=== PATIENT | female | born 1940 | race Hispanic/Latino ===

== ENCOUNTER 2018-02-22 17:15 | Emergency (ER) | payer MEDICARE ==
[2018-02-22 17:29] VITALS: BMI 21.2
[2018-02-22 17:33] VITALS: RESP 18; TEMP 99.4
--- NOTE | 2018-02-22 17:36 | ED PDOC ---
Arrival/HPI - General Chief Complaint: GI Problem Time Seen by Provider: 02/22/18 17:22 Historian: Patient - History of Present Illness Narrative History of Present Illness (Text): 02/22/18 17:30 Jackelin Rausch is a 77 year old female who presents to the emergency department complaining of 3 weeks duration of nausea, diarrhea, generalized weakness, fatigue, lightheadedness with frequent falls. No trauma. Patient spoke with Dr. Cantor today, who sent her to the emergency department via ambulance. No other complaints at this time. Patient endorses that she has never smoked and does not drink. PMD: Dr. Cantor Neurologist: Dr. Cole Time/Duration: < month Symptom Onset: Gradual Symptom Course: Unchanged Activities at Onset: Rest Context: Home Associated Symptoms (Text): 02/22/18 17:55 3 week history of generalized weakness and fatigue along with dizziness frequent falls and diarrhea. There is some nausea but no vomiting. She denies any injury. Spoke with her PMD who directed her to the emergency department. No fever. No travel or exposure. No chest pain palpitations or dyspnea. Past Medical History - Provider Review Nursing Documentation Reviewed: Yes - Reproductive Menopause: No - Cardiac Hx Cardiac Disorders: Yes Hx Hypertension: Yes - Pulmonary Hx Respiratory Disorders: No Other/Comment: smoker - Neurological Hx Neurological Disorder: Yes Hx Migraine: Yes - HEENT Hx HEENT Disorder: No - Renal Hx Renal Disorder: No - Endocrine/Metabolic Hx Endocrine Disorders: No Other/Comment: VITAMIN D DEFICIENCY,TOXIC GOITER - Hematological/Oncological Hx Blood Transfusions: No Hx Blood Transfusion Reaction: No - Integumentary Hx Dermatological Disorder: Yes (SKIN ABRASION TO FACE FROM FALL) - Musculoskeletal/Rheumatological Hx Musculoskeletal Disorders: Yes Hx Falls: Yes (12/11/14,10-05-15,) Hx Fractures: Yes (RIGHT AND LEFT HUMERAL FX. 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 - Gastrointestinal Hx Gastrointestinal Disorders: No - Genitourinary/Gynecological Hx Genitourinary Disorders: No - Psychiatric Hx Psychophysiologic Disorder: Yes Hx Depression: Yes Hx Emotional Abuse: No Hx Physical Abuse: No Hx Substance Use: No - Past Surgical History Past Surgical History: No Previous - Surgical History Hx Orthopedic Surgery: Yes (orif left shoulder 12/13/2014) - Anesthesia Hx Anesthesia: Yes Hx Anesthesia Reactions: No Hx Malignant Hyperthermia: No - Suicidal Assessment Feels Threatened In Home Enviroment: No Family/Social History - Physician Review Nursing Documentation Reviewed: Yes Family/Social History: No Known Family HX Smoking Status: Former Smoker Hx Alcohol Use: No Hx Substance Use: No Hx Substance Use Treatment: No Allergies/Home Meds Allergies/Adverse Reactions: Allergies No Known Allergies Allergy (Verified 10/05/15 22:45) Home Medications: Home Meds Medication Instructions Recorded Confirmed Almotriptan Malate [Axert] 12.5 mg pe PO DAILY 02/22/18 02/22/18 Atenolol [Tenormin] 25 mg pe PO DAILY 02/22/18 02/22/18 Calcium Carbonate [Calcium] 500 mg pe PO DAILY 02/22/18 02/22/18 Divalproex [Depakote DR] 500 mg pe PO DAILY 02/22/18 02/22/18 Docusate [Colace] 100 mg pe PO DAILY 02/22/18 02/22/18 Ipratropium 0.02% [Atrovent] 0.02 mg pe NS BID 02/22/18 02/22/18 Oxycodone HCl/Acetaminophen 5 mg pe PO DAILY 02/22/18 02/22/18 [Endocet 5-325 Tablet] clonazePAM [Klonopin] 1 mg pe PO DAILY 02/22/18 02/22/18 Review of Systems - Review of Systems Constitutional: Fatigue, Other (Generalized weakness; Lightheadedness). absent : Fevers, Night Sweats Eyes: absent: Vision Changes ENT: absent: Hearing Changes Respiratory: absent: SOB, Cough, Wheezing Cardiovascular: absent: Chest Pain, Palpitations, Syncope Gastrointestinal: Diarrhea, Nausea. absent: Abdominal Pain, Vomiting Genitourinary Female: absent: Dysuria Musculoskeletal: absent: Arthralgias Skin: absent: Rash, Pruritis Neurological: Dizziness, Gait Changes. absent: Headache, Focal Weakness Endocrine: absent: Diaphoresis Hemo/Lymphatic: absent: Adenopathy Psychiatric: absent: Anxiety, Depression Physical Exam Vital Signs Reviewed: Yes Vital Signs Temp Pulse Resp BP Pulse Ox 02/22/18 17:16 99.4 F 63 18 145/89 97 Temperature: Afebrile Blood Pressure: Normal Pulse: Regular Respiratory Rate: Normal Appearance: Positive for: Uncomfortable, Other (Frail and pale, chronically ill- appearing.) Pain Distress: None Mental Status: Positive for: Alert and Oriented X 3 - Systems Exam Head: Present: Atraumatic, Normocephalic Pupils: Present: PERRL Extroacular Muscles: Present: EOMI Conjunctiva: Present: Normal Ears: Present: NORMAL TM. No: Erythema, Normal Canal Mouth: Present: Moist Mucous Membranes Pharnyx: No: ERYTHEMA, EXUDATE, TONSILS ENLARGED Neck: Present: Normal Range of Motion Respiratory/Chest: Present: Decreased Breath Sounds (Lung sounds diminished). No: Respiratory Distress, Accessory Muscle Use, Wheezes, Rales, Retracting, Rhonchi, Tachypneic, Tender to Palpation Cardiovascular: Present: Regular Rate and Rhythm, Normal S1, S2. No: Murmurs Abdomen: No: Tenderness, Distention, Peritoneal Signs, Rebound, Guarding Back: Present: Normal Inspection Upper Extremity: Present: Normal Inspection. No: Cyanosis, Edema Lower Extremity: Present: Normal Inspection. No: Edema Neurological: Present: GCS=15, CN II-XII Intact, Speech Normal, Motor Func Grossly Intact, Normal Sensory Function, Normal Cerebellar Funct Skin: Present: Pale. No: Rashes Psychiatric: Present: Alert, Oriented x 3, Normal Insight, Normal Concentration Medical Decision Making ED Course and Treatment: 02/22/18 17:37 Impression: 77 year old female complaining of 3 weeks duration of nausea, diarrhea, generalized weakness, fatigue, lightheadedness with frequent falls. Plan: -- EKG -- Head CT w/o contrast -- Chest X-ray -- Urinalysis -- Labs -- Reassess and disposition Progress Notes: 02/22/18 17:56 EKG shows normal sinus rhythm rate approximately [address] or T-wave changes 02/22/18 18:37 Chest X-ray: Creator : Sam Alexis MD IMPRESSION: No active disease. No significant interval change compared to the prior examination(s). 02/22/18 20:02 Patient feels better and wants to go home. Her workup is negative other than very mild dehydration. She was instructed to follow-up with her PMD and neurologist. Follow up in the ER as needed. - Lab Interpretations Lab Results: 02/22/18 18:30 02/22/18 18:30 Lab Results 02/22/18 18:30: Sodium 140, Potassium 4.0, Chloride 105, Carbon Dioxide 26, Anion Gap 13, BUN 27 H, Creatinine 0.9, Est GFR ( Amer) > 60, Est GFR ( Non-Af Amer) > 60, Random Glucose 93, Calcium 11.4 H, Magnesium 1.7, Total Bilirubin 0.2, AST 19, ALT 15, Alkaline Phosphatase 56, Lactate Dehydrogenase 519, Total Creatine Kinase 54, Troponin I < 0.01, Total Protein 6.5, Albumin 3.7 , Globulin 2.8, Albumin/Globulin Ratio 1.3 02/22/18 18:30: PT 10.9, INR 0.96, APTT 26.2 02/22/18 18:30: WBC 8.0, RBC 3.82, Hgb 12.9, Hct 37.6, MCV 98.4, MCH 33.8, MCHC 34.3, RDW 13.3, Plt Count 100 L, MPV 14.1 H, Gran % 65.9, Lymph % (Auto) 28.8, Motley % (Auto) 4.1, Eos % (Auto) 0.9 L, Baso % (Auto) 0.3, Gran # 5.26, Lymph # ( Auto) 2.3, Motley # (Auto) 0.3, Eos # (Auto) 0.1, Baso # (Auto) 0.02 I have reviewed the lab results: Yes - RAD Interpretation Radiology Orders: 02/22/18 17:29 HEAD W/O CONTRAST [CT] Stat CHEST PORTABLE [RAD] Stat Chest 1 view shows no infiltrate effusion or cardiomegaly. CT scan of the head as read by the v rad radiologist shows no acute findings. Reservations Manager: Radiologist - Scribe Statement The provider has reviewed the documentation as recorded by the Daryl Breen Provider Scribe Attestation: All medical record entries made by the Scribe were at my direction and personally dictated by me. I have reviewed the chart and agree that the record accurately reflects my personal performance of the history, physical exam, medical decision making, and the department course for this patient. I have also personally directed, reviewed, and agree with the discharge instructions and disposition. Disposition/Present on Arrival - Present on Arrival Any Indicators Present on Arrival: No History of DVT/PE: No History of Uncontrolled Diabetes: No Urinary Catheter: No History of Decub. Ulcer: No History Surgical Site Infection Following: None - Disposition Have Diagnosis and Disposition been Completed?: Yes Diagnosis: Weakness, Dehydration, Diarrhea Disposition: HOME/ ROUTINE Disposition Time: 20:03 Patient Plan: Discharge Condition: GOOD Discharge Instructions (ExitCare): Weakness (ED), Diarrhea in Adolescents and Adults, Dehydration, Adult (DC), Fatigue (DC) Referrals: Chuy Cantor MD [Primary Care Provider] - Follow up with primary Forms: [employer] (Mongolian)
--- NOTE | 2018-02-22 18:08 | RAD ---
HISTORY: Weakness COMPARISON: 10/05/2015 FINDINGS: LUNGS: No active pulmonary disease. PLEURA: No significant pleural effusion identified, no pneumothorax apparent. CARDIOVASCULAR: No radiographic findings to suggest acute or significant cardiovascular disease. OSSEOUS STRUCTURES: No significant abnormalities. Postoperative findings bilateral shoulders. VISUALIZED UPPER ABDOMEN: Normal. OTHER FINDINGS: None. IMPRESSION: No active disease. No significant interval change compared to the prior examination(s).
[2018-02-22 18:39] LABS: BASO # 0.02 K/mm3 (0.0-2.0); BASO % 0.3 % (0.0-3.0); EOS # 0.1 (0.0-0.7); EOS % 0.9 % (1.5-5.0); GRAN # 5.26 (1.4-6.5); GRAN % 65.9 % (50.0-68.0); HEMOGLOBIN 12.9 g/dL (12.0-16.0); LYMPH # 2.3 (1.2-3.4); LYMPH % 28.8 % (22.0-35.0); MEAN CELL VOLUME 98.4 fl (80.0-105.0); MEAN CORPUSCULAR HEMOGLOBIN 33.8 pg (25.0-35.0); MEAN CORPUSCULAR HGB CONC 34.3 g/dl (31.0-37.0); MEAN PLATELET VOLUME 14.1 fl (7.0-11.0); MONO # 0.3 (0.1-0.6); MONO % 4.1 % (1.0-6.0); RBC 3.82 10^6/uL (3.5-6.1); RED CELL DISTRIBUTION WIDTH 13.3 % (11.5-14.5)
[2018-02-22 18:47] LABS: INR 0.96 (0.93-1.08); PARTIAL THROMBOPLASTIN TIME 26.2 Seconds (25.1-36.5); PROTHROMBIN TIME 10.9 SECONDS (9.4-12.5)
[2018-02-22 18:49] LABS: ALB/GLOB RATIO 1.3 (1.1-1.8); ALBUMIN 3.7 g/dL (3.0-4.8); ALT/SGPT 15 U/L (7-56); AST/SGOT 19 U/L (14-36); BLOOD UREA NITROGEN 27 mg/dL (7-21); CALCIUM 11.4 mg/dL (8.4-10.5); GFR AFRICAN-AMERICAN > 60; GFR NON-AFRICAN AMERICAN > 60
[2018-02-22 18:59] LABS: TROPONIN I < 0.01 ng/mL
--- NOTE | 2018-02-22 19:16 | CARD ---
APPROVED REPORT EKG Measurement Heart [id number] <Conclusion> Normal sinus rhythm Normal ECG
[2018-02-22 20:11] VITALS: BP 154/68; PULSE 60; O2SAT 99
--- NOTE | 2018-02-23 08:14 | CT ---
PROCEDURE: CT HEAD WITHOUT CONTRAST. HISTORY: weak COMPARISON: 10/05/2015 TECHNIQUE: Axial computed tomography images were obtained through the head/brain without intravenous contrast. Radiation dose: Total exam DLP = 1053 mGy-cm. This CT exam was performed using one or more of the following dose reduction techniques: Automated exposure control, adjustment of the mA and/or kV according to patient size, and/or use of iterative reconstruction technique. FINDINGS: HEMORRHAGE: No intracranial hemorrhage. BRAIN: No mass effect or edema. No atrophy or chronic microvascular ischemic changes. VENTRICLES: Unremarkable. No hydrocephalus. CALVARIUM: Unremarkable. PARANASAL SINUSES: Unremarkable as visualized. No significant inflammatory changes. MASTOID AIR CELLS: Unremarkable as visualized. No inflammatory changes. OTHER FINDINGS: The report concurs with the preliminary [facility] report IMPRESSION: No acute findings
== END 2018-02-22 21:34 | disposition home or self-care (01) ==
LOC: ED 17:15
DX: E86.0 Dehydration (principal); R19.7 Diarrhea, unspecified; R53.1 Weakness; I10 Essential (primary) hypertension; Z87.891 Personal history of nicotine dependence

== ENCOUNTER 2018-10-11 15:02 | Inpatient (IN) | payer MEDICARE ==
--- NOTE | 2018-10-11 15:51 | RAD ---
Date of service: 10/11/2018 HISTORY: altered COMPARISON: 02/22/2018 FINDINGS: LUNGS: No active pulmonary disease. PLEURA: No significant pleural effusion identified, no pneumothorax apparent. CARDIOVASCULAR: No aortic atherosclerotic calcification present. Normal cardiac size. No pulmonary vascular congestion. OSSEOUS STRUCTURES: No significant abnormalities. VISUALIZED UPPER ABDOMEN: Normal. OTHER FINDINGS: None. IMPRESSION: No active disease.
--- NOTE | 2018-10-11 15:58 | ED PDOC ---
Arrival/HPI - General Time Seen by Provider: 10/11/18 15:10 Historian: Patient, Family - History of Present Illness Narrative History of Present Illness (Text): 10/11/18 15:28 78 year old female, with past medical history of HTN, migraine HARLEY, and spinal s tenosis, presents tot he Emergency department accompanied by son complaining of difficulty ambulating since today. Son reports patient at baseline ambulates with a walker and dunn at home without any difficulty. As per son, patient is more disoriented than usual, expressing shuffling gait and unsteadiness on her feet. Patient denies any somatic complaints. Patient denies any focal weakness, headache, numbness/tingling, dizziness, urinary symptoms or any other complaints. Patient admits to recent falls but denies any head injuries or loss of consciousness. PMD: Dr. Sakshi Muñoz: Dr. Franco Time/Duration: 4-6 hours Symptom Onset: Gradual Symptom Course: Unchanged Activities at Onset: Light Context: Home Past Medical History - Provider Review Nursing Documentation Reviewed: Yes - Cardiac Hx Cardiac Disorders: Yes Hx Hypertension: Yes - Pulmonary Hx Respiratory Disorders: No Other/Comment: smoker - Neurological Hx Neurological Disorder: Yes Hx Migraine: Yes - HEENT Hx HEENT Disorder: No - Renal Hx Renal Disorder: No - Endocrine/Metabolic Hx Endocrine Disorders: No Other/Comment: VITAMIN D DEFICIENCY,TOXIC GOITER - Hematological/Oncological Hx Blood Transfusions: No Hx Blood Transfusion Reaction: No - Integumentary Hx Dermatological Disorder: Yes (SKIN ABRASION TO FACE FROM FALL) - Musculoskeletal/Rheumatological Hx Musculoskeletal Disorders: Yes Hx Falls: Yes (12/11/14,10-05-15,) Hx Fractures: Yes (RIGHT AND LEFT HUMERAL FX. 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 - Gastrointestinal Hx Gastrointestinal Disorders: No - Genitourinary/Gynecological Hx Genitourinary Disorders: No - Psychiatric Hx Psychophysiologic Disorder: Yes Hx Depression: Yes Hx Emotional Abuse: No Hx Physical Abuse: No Hx Substance Use: No - Past Surgical History Past Surgical History: No Previous - Surgical History Hx Orthopedic Surgery: Yes (orif left shoulder 12/13/2014) - Anesthesia Hx Anesthesia: Yes Hx Anesthesia Reactions: No Hx Malignant Hyperthermia: No - Suicidal Assessment Feels Threatened In Home Enviroment: No Family/Social History - Physician Review Nursing Documentation Reviewed: Yes Family/Social History: Unknown Family HX Smoking Status: Former Smoker Hx Alcohol Use: No Hx Substance Use: No Hx Substance Use Treatment: No Allergies/Home Meds Allergies/Adverse Reactions: Allergies No Known Allergies Allergy (Verified 10/05/15 22:45) Home Medications: Home Meds Medication Instructions Recorded Confirmed Almotriptan Malate [Axert] 12.5 mg pe PO DAILY 02/22/18 02/22/18 Calcium Carbonate [Calcium] 500 mg pe PO DAILY 02/22/18 02/22/18 Divalproex [Depakote DR] 500 mg pe PO DAILY 02/22/18 02/22/18 Docusate [Colace] 100 mg pe PO DAILY 02/22/18 02/22/18 Oxycodone HCl/Acetaminophen 5 mg pe PO DAILY 02/22/18 02/22/18 [Endocet 5-325 Tablet] RX: Atenolol [Tenormin] 25 mg pe PO DAILY 02/22/18 02/22/18 RX: Ipratropium 0.02% [Atrovent] 0.02 mg pe NS BID 02/22/18 02/22/18 clonazePAM [Klonopin] 1 mg pe PO DAILY 02/22/18 02/22/18 Review of Systems - Review of Systems Constitutional: absent: Fevers Respiratory: absent: SOB, Cough Cardiovascular: absent: Chest Pain, OWENS Gastrointestinal: absent: Abdominal Pain, Diarrhea, Nausea, Vomiting Genitourinary Female: absent: Dysuria, Urine Output Changes Musculoskeletal: absent: Back Pain, Neck Pain Skin: absent: Rash Neurological: Gait Changes (unsteady on feet). absent: Headache, Dizziness, Focal Weakness Endocrine: absent: Diaphoresis Psychiatric: absent: Anxiety Physical Exam Vital Signs Reviewed: Yes Vital Signs Temp Pulse Resp BP Pulse Ox 10/11/18 15:34 98.0 F 108 H 18 111/90 98 Temperature: Afebrile Blood Pressure: Normal Pulse: Tachycardic Respiratory Rate: Normal Appearance: Positive for: Well-Appearing, Non-Toxic, Comfortable Pain Distress: None Mental Status: Positive for: other (Alert and orineted x2 ) - Systems Exam Head: Present: Atraumatic, Normocephalic, Other (swelling to left side of her face) Pupils: Present: PERRL Extroacular Muscles: Present: EOMI Conjunctiva: Present: Normal Mouth: Present: Moist Mucous Membranes Neck: Present: Normal Range of Motion Respiratory/Chest: Present: Clear to Auscultation, Good Air Exchange. No: Respiratory Distress, Accessory Muscle Use Cardiovascular: Present: Regular Rate and Rhythm, Normal S1, S2. No: Murmurs Abdomen: No: Tenderness, Distention, Peritoneal Signs Back: Present: Normal Inspection Upper Extremity: Present: Normal Inspection, Normal ROM, Neurovascularly Intact, Other (full strength and normal range of motion bilaterally). No: Cyanosis, Edema Lower Extremity: Present: Normal Inspection, Normal ROM, Neurovascularly Intact, Other (full strength and normal range of motion bilaterally when lying in bed. No bony hip tenderness. Unsteady when attempting to ambulate. ). No: Edema Neurological: Present: GCS=15, CN II-XII Intact, Speech Normal, Other (no midline back tenderness) Skin: Present: Warm, Dry, Normal Color. No: Rashes Psychiatric: Present: Alert (Alert and Orientedx 2), Normal Insight, Normal Concentration Medical Decision Making ED Course and Treatment: 10/11/18 15:28 Impression: 78 year old female presents to the Emergency department or evaluation of increased disorientation and unsteadiness on feet. Plan: -- CT of Head -- EKG -- Labs -- CXR -- Reassess and disposition Prior Visits: Notes and results from previous visits were reviewed. Progress Notes: 10/11/18 16:36 EKG shows sinus tachycardia at 102bpm with normal intervals and no st changes. 10/11/18 17:06 Chest X-ray reviewed by radiologist, shows no active disease. 10/11/18 18:22 CT of head reviewed by radiologist, shows: Limited motion degraded study. Chronic white matter ischemic changes. Few tiny focal areas of low attenuation both basal ganglia may represent chronic lacunar-type infarct versus dilated perivascular spaces. Moderate central volume loss. Orozco made foci of the CT of Maxillofacial reviewed by radiologist, shows: No evidence of acute maxillofacial skeletal fractures. Mild left premaxillary infraorbital soft tissue swelling. Bony orbits intact. Findings also suggest mild exophthalmos. Clinical correlation recommended with ophthalmologic examination. Small focus of polypoid like mucosal thickening floor right maxillary antrum. Minimal mucosal thickening left maxillary antrum. 10/11/18 18:29 Upon reassessment, patient can stand up but is unable to ambulate even with assistance (baseline uses walker). Patient lives alone and cannot be safely discharged. Will need PT/OT and further neuro evaluation. - RAD Interpretation Radiology Orders: 10/11/18 15:28 HEAD W/O CONTRAST [CT] Stat CHEST PORTABLE [RAD] Stat Vice President Of Brand Management: Radiologist - Scribe Statement The provider has reviewed the documentation as recorded by the Scribe Dany Arana. All medical record entries made by the Scribe were at my direction and personally dictated by me. I have reviewed the chart and agree that the record accurately reflects my personal performance of the history, physical exam, medical decision making, and the department course for this patient. I have also personally directed, reviewed, and agree with the discharge instructions and disposition. Disposition/Present on Arrival - Present on Arrival Any Indicators Present on Arrival: No History of DVT/PE: No History of Uncontrolled Diabetes: No Urinary Catheter: No History Surgical Site Infection Following: None - Disposition Have Diagnosis and Disposition been Completed?: Yes Diagnosis: Gait disturbance, Falls frequently Disposition: HOSPITALIZED Disposition Time: 17:29 Patient Plan: Observation Condition: FAIR
[2018-10-11 17:18] LABS: BASO # 0.01 K/mm3 (0.0-2.0); BASO % 0.1 % (0.0-3.0); EOS % 0.2 % (1.5-5.0); GRAN # 6.09 (1.4-6.5); GRAN % 70.2 % (50.0-68.0); HEMOGLOBIN 12.6 g/dL (12.0-16.0); LYMPH # 1.8 (1.2-3.4); MEAN CELL VOLUME 100.8 fl (80.0-105.0); MEAN CORPUSCULAR HEMOGLOBIN 33.8 pg (25.0-35.0); MEAN CORPUSCULAR HGB CONC 33.5 g/dl (31.0-37.0); MEAN PLATELET VOLUME 13.1 fl (7.0-11.0); MONO # 0.7 (0.1-0.6); MONO % 8.5 % (1.0-6.0); RBC 3.73 10^6/uL (3.5-6.1); RED CELL DISTRIBUTION WIDTH 13.3 % (11.5-14.5); WHITE BLOOD COUNT 8.7 10^3/uL (4.5-11.0)
[2018-10-11 17:27] LABS: ALB/GLOB RATIO 1.2 (1.1-1.8); ALBUMIN 3.4 g/dL (3.0-4.8); ALT/SGPT 21 U/L (7-56); AST/SGOT 23 U/L (14-36); BLOOD UREA NITROGEN 25 mg/dL (7-21); CALCIUM 8.8 mg/dL (8.4-10.5); GFR NON-AFRICAN AMERICAN 54
[2018-10-11 17:37] LABS: TROPONIN I 0.01 ng/mL
[2018-10-11 17:40] LABS: INR 0.99; PARTIAL THROMBOPLASTIN TIME 22.9 Seconds (25.1-36.5); PROTHROMBIN TIME 11.3 SECONDS (9.4-12.5)
--- NOTE | 2018-10-11 17:58 | CT ---
Date of service: 10/11/2018 PROCEDURE: CT HEAD WITHOUT CONTRAST. HISTORY: Head injury. COMPARISON: Correlation also made with concurrent CT scan maxillofacial skeleton. Comparison also made with prior CT scan brain 02/22/2018 TECHNIQUE: Axial computed tomography images were obtained through the head/brain without intravenous contrast. Radiation dose: Total exam DLP = 1122.5 mGy-cm. This CT exam was performed using one or more of the following dose reduction techniques: Automated exposure control, adjustment of the mA and/or kV according to patient size, and/or use of iterative reconstruction technique. FINDINGS: Note the examination is limited by motion artifact HEMORRHAGE: No acute parenchymal, subarachnoid or extra-axial hemorrhage. BRAIN: Mild moderate diffuse/confluent chronic periventricular white matter ischemic changes seen extending peripherally into the deep and subcortical white matter both cerebral hemispheres.. There are a few tiny foci of low attenuation left inferior basal ganglia may represent tiny chronic lacunar type infarct versus tiny dilated perivascular spaces. Moderate central volume loss evidenced by disproportionate enlargement of the ventricles compared sulci. VENTRICLES: No obstructive hydrocephalus. CALVARIUM: Calvarium appears grossly intact. PARANASAL SINUSES: The frontal sinuses are underpneumatized/hypoplastic particularly on the right side.. No obvious fluid levels seen to suggest acute hemorrhage or sinusitis. MASTOID AIR CELLS: Unremarkable as visualized. No inflammatory changes. OTHER FINDINGS: None. IMPRESSION: Limited motion degraded study. Chronic white matter ischemic changes. Few tiny focal areas of low attenuation both basal ganglia may represent chronic lacunar-type infarct versus dilated perivascular spaces. Moderate central volume loss. Orozco made foci of the
--- NOTE | 2018-10-11 18:06 | CT ---
Date of service: 10/11/2018 PROCEDURE: CT MAXILLOFACIAL BONES WITHOUT CONTRAST HISTORY: L sided facial swelling COMPARISON: Correlation made with concurrent CT scan of the brain. TECHNIQUE: Contiguous axial CT images of the maxillofacial bones were obtained. Coronal and sagittal reformats were generated. Radiation dose: Total exam DLP = 778.72 mGy-cm. This CT exam was performed using one or more of the following dose reduction techniques: Automated exposure control, adjustment of the mA and/or kV according to patient size, and/or use of iterative reconstruction technique. FINDINGS: NASAL BONES: Unremarkable. ORBITS: . Mild infraorbital soft tissue swelling there appears to be mild exophthalmos. Bony orbits and contents otherwise appear unremarkable. The globes intact and lenses appropriately located. There are no retrobulbar hemorrhages or collections.. The optic nerves and extraocular musculature normal in appearance. PARANASAL SINUSES/ MASTOIDS: Hypoplastic frontal sinus focal area polypoid like mucosal thickening and or mucous retention cyst floor right maxillary antrum. Minimal mucosal thickening floor left maxillary antrum. MAXILLA: There appears to be some minor left pre maxillary/infraorbital soft tissue swelling. MANDIBLE/ TEMPOROMANDIBULAR JOINTS: Unremarkable. SKULL BASE: Unremarkable. TEMPORAL BONES: Middle ears and mastoid grossly unremarkable. OTHER FINDINGS: None. IMPRESSION: No evidence of acute maxillofacial skeletal fractures. Mild left premaxillary infraorbital soft tissue swelling. Bony orbits intact. Findings also suggest mild exophthalmos. Clinical correlation recommended with ophthalmologic examination. Small focus of polypoid like mucosal thickening floor right maxillary antrum. Minimal mucosal thickening left maxillary antrum.
[2018-10-12] MEDS ORDERED: Pneumococcal 23-Valent Vaccine IM ONE (00:23)
[2018-10-12] MEDS ORDERED: Influenza Vaccine 60 mcg/0.5 mL SYR (4YR UP) IM ONE (00:23)
[2018-10-12 00:35] VITALS: BMI 20.1
[2018-10-12] MEDS ORDERED: Magnesium Sulfate 2 gm/50 ml 2 GM/50 ML BAG IVPB ONE (07:03)
[2018-10-12 07:37] LABS: BASO # 0.01 K/mm3 (0.0-2.0); BASO % 0.2 % (0.0-3.0); EOS # 0.1 (0.0-0.7); EOS % 0.9 % (1.5-5.0); GRAN # 3.14 (1.4-6.5); GRAN % 53.7 % (50.0-68.0); HEMOGLOBIN 11.4 g/dL (12.0-16.0); LYMPH # 2.1 (1.2-3.4); LYMPH % 35.6 % (22.0-35.0); MEAN CELL VOLUME 101.5 fl (80.0-105.0); MEAN CORPUSCULAR HGB CONC 33.5 g/dl (31.0-37.0); MEAN PLATELET VOLUME 12.9 fl (7.0-11.0); MONO # 0.6 (0.1-0.6); MONO % 9.6 % (1.0-6.0); RBC 3.35 10^6/uL (3.5-6.1); RED CELL DISTRIBUTION WIDTH 13.4 % (11.5-14.5); WHITE BLOOD COUNT 5.8 10^3/uL (4.5-11.0)
[2018-10-12 07:49] LABS: ALB/GLOB RATIO 1.1 (1.1-1.8); ALBUMIN 3.1 g/dL (3.0-4.8); ALT/SGPT 22 U/L (7-56); AST/SGOT 20 U/L (14-36); BLOOD UREA NITROGEN 24 mg/dL (7-21); CALCIUM 8.6 mg/dL (8.4-10.5); GFR NON-AFRICAN AMERICAN > 60
[2018-10-12] MEDS ORDERED: Potassium Chloride 20 mEq ER Tab PO ONE (08:13)
[2018-10-12] MEDS: Magnesium Oxide 400 mg Tab UD PO SCH ×3 (09:29→17:09)
--- NOTE | 2018-10-12 09:30 | CARD ---
APPROVED REPORT Date of service: 10/11/2018 EKG Measurement Heart [id number] <Conclusion> Sinus tachycardia NSSTW changes Prolonged QTc New compared to ECG 02/22/18
--- NOTE | 2018-10-12 14:54 | CP.PCM.HP ---
<Stanley Messer - Last Filed: 10/12/18 18:29> History of Present Illness - History of Present Illness History of Present Illness: H&P for Dr. Aquino service CC: increased difficulty ambulating This is a 78 yo F with PMH of HTN, migraine, spinal stenosis, and hx of toxic goiter who presented with increasing difficulty ambulating at home, and additional complaint (as per son) of increasing confusion and shuffling gait. Workup in the ED was negative for any acute processes, but while patient was able to stand up in the ED, she was unable to ambulate further, even with assistance. Patient reports fall at home 4 days prior, due to shuffling gait, thinks she caught her foot on something on the floor. Denies head trauma, loss of consciousness, dizziness, confusion, room-spinning, vision changes, or focal weakness. Reports compliance with home medications. 12-system ROS reviewed and negative except as above. PMH: as above PSH: ORIF L shoulder with metal plate placement 2014 Fam Hx: pt unsure Soc Hx: active smoker (1ppd for > 10 yrs), social EtOH, denies illicits/IVDA PMD: Dr. Cantor Present on Admission - Present on Admission Any Indicators Present on Admission: No History of DVT/PE: No History of Uncontrolled Diabetes: No Review of Systems - Review of Systems All systems: reviewed and no additional remarkable complaints except (as per HPI) Past Patient History - Infectious Disease Hx of Infectious Diseases: None - Past Social History Smoking Status: Never Smoked - CARDIAC Hx Hypertension: Yes - PULMONARY Hx Respiratory Disorders: No Other/Comment: smoker - NEUROLOGICAL Hx Neurological Disorder: Yes Hx Migraine: Yes - HEENT Hx HEENT Problems: No - RENAL Hx Chronic Kidney Disease: No - ENDOCRINE/METABOLIC Hx Endocrine Disorders: No Other/Comment: VITAMIN D DEFICIENCY,TOXIC GOITER - HEMATOLOGICAL/ONCOLOGICAL Other/Comment: thrombocytopenia - INTEGUMENTARY Hx Dermatological Problems: Yes (SKIN ABRASION TO FACE FROM FALL) - MUSCULOSKELETAL/RHEUMATOLOGICAL Hx Falls: Yes - GASTROINTESTINAL Hx Gastrointestinal Disorders: No - GENITOURINARY/GYNECOLOGICAL Hx Genitourinary Disorders: No - PSYCHIATRIC Hx Psychophysiologic Disorder: Yes Hx Depression: Yes Hx Emotional Abuse: No Hx Physical Abuse: No - SURGICAL HISTORY Hx Orthopedic Surgery: Yes (orif left shoulder 12/13/2014) - ANESTHESIA Hx Anesthesia: Yes Hx Anesthesia Reactions: No Hx Malignant Hyperthermia: No Meds Allergies/Adverse Reactions: Allergies Allergy/AdvReac Type Severity Reaction Status Date / Time No Known Allergies Allergy Verified 10/05/15 22:45 Physical Exam - Constitutional Appears: Well, Non-toxic, No Acute Distress - Head Exam Head Exam: ATRAUMATIC, NORMAL INSPECTION, NORMOCEPHALIC - Eye Exam Eye Exam: EOMI, Normal appearance. absent: Conjunctival injection, Scleral icterus Pupil Exam: absent: Irregular, Unequal - ENT Exam ENT Exam: Mucous Membranes Moist - Neck Exam Neck exam: Positive for: Full Rom, Normal Inspection. Negative for: Lymphadenopathy, Thyromegaly - Respiratory Exam Respiratory Exam: Clear to Auscultation Bilateral, NORMAL BREATHING PATTERN. absent: Accessory Muscle Use, Chest Wall Tenderness, Decreased Breath Sounds, Rales, Rhonchi, Wheezes - Cardiovascular Exam Cardiovascular Exam: REGULAR RHYTHM, RRR, +S1, +S2. absent: Bradycardia, Tachycardia, Irregular Rhythm, JVD, +S4 - GI/Abdominal Exam GI & Abdominal Exam: Normal Bowel Sounds, Soft. absent: Diminished Bowel Sounds, Distended, Firm, Hyperactive Bowel Sounds, Hypoactive Bowel Sounds, Rigid, Tenderness - Extremities Exam Extremities exam: Positive for: normal inspection. Negative for: pedal edema, tenderness - Neurological Exam Additional comments: awake and alert, follows all commands appropriately, moving all extremities spontaneously 4/5 bilateral UE motor strength, 3+/5 bilateral LE motor strength - Psychiatric Exam Psychiatric exam: Normal Affect, Normal Mood - Skin Skin Exam: Dry, Intact, Normal Color, Warm Results - Vital Signs Recent Vital Signs: Last Vital Signs Temp 98.3 F 10/12/18 08:28 Pulse 89 10/12/18 09:29 Resp 20 10/12/18 08:28 BP 144/87 10/12/18 09:29 Pulse Ox 94 L 10/12/18 08:28 - Labs Result Diagrams: 10/12/18 07:15 10/12/18 07:15 Labs: Laboratory Results - last 24 hr 10/11/18 10/11/18 10/11/18 15:10 17:00 17:00 WBC 8.7 RBC 3.73 Hgb 12.6 Hct 37.6 MCV 100.8 MCH 33.8 MCHC 33.5 RDW 13.3 Plt Count 110 L MPV 13.1 H Gran % 70.2 H Lymph % (Auto) 21.0 L Tate % (Auto) 8.5 H Eos % (Auto) 0.2 L Baso % (Auto) 0.1 Gran # 6.09 Lymph # (Auto) 1.8 Tate # (Auto) 0.7 H Eos # (Auto) 0.0 Baso # (Auto) 0.01 PT 11.3 INR 0.99 APTT 22.9 L Sodium Potassium Chloride Carbon Dioxide Anion Gap BUN Creatinine Est GFR ( Amer) Est GFR (Non-Af Amer) POC Glucose (mg/dL) 97 Random Glucose Calcium Phosphorus Magnesium Total Bilirubin AST ALT Alkaline Phosphatase Lactate Dehydrogenase Total Creatine Kinase Troponin I Total Protein Albumin Globulin Albumin/Globulin Ratio 10/11/18 10/12/18 10/12/18 17:00 07:15 07:15 WBC 5.8 D RBC 3.35 L Hgb 11.4 L Hct 34.0 L MCV 101.5 MCH 34.0 MCHC 33.5 RDW 13.4 Plt Count 88 L MPV 12.9 H Gran % 53.7 Lymph % (Auto) 35.6 H Tate % (Auto) 9.6 H Eos % (Auto) 0.9 L Baso % (Auto) 0.2 Gran # 3.14 Lymph # (Auto) 2.1 Tate # (Auto) 0.6 Eos # (Auto) 0.1 Baso # (Auto) 0.01 PT INR APTT Sodium 142 140 Potassium 4.1 3.3 L Chloride 109 H 109 H Carbon Dioxide 27 27 Anion Gap 10 9 L BUN 25 H 24 H Creatinine 1.0 0.9 Est GFR ( Amer) > 60 > 60 Est GFR (Non-Af Amer) 54 > 60 POC Glucose (mg/dL) Random Glucose 96 90 Calcium 8.8 8.6 Phosphorus 3.4 Magnesium 1.6 L Total Bilirubin 0.4 0.5 AST 23 20 ALT 21 22 Alkaline Phosphatase 78 70 Lactate Dehydrogenase 517 Total Creatine Kinase 170 Troponin I 0.01 Total Protein 6.3 5.9 Albumin 3.4 3.1 Globulin 2.9 2.8 Albumin/Globulin Ratio 1.2 1.1 Assessment & Plan - Assessment and Plan (Free Text) Assessment: This is a 78 yo F with PMH of HTN, migraine, spinal stenosis, and hx of toxic goiter who presented with increasing difficulty ambulating at home, and additional complaint (as per son) of increasing confusion and shuffling gait. She was admitted for inability to ambulate, pending PT/OT assessment and Neuro eval. Plan: 1) Decreased ambulation Ddx: NPH vs deconditioning vs 2/2 injury from fall -no acute deformity on exam, no suspicion of fracture -CT head in ED negative for acute intracranial process, negative for hydrocephalus -PT to evalutate -Neuro consulted, appreciate their recs -High fall risk protocol 2) HTN -continue tenormin Dispo: Med/Surg, pending Neuro Eval and PT Eval Ppx: SCDs for DVT, no GI ppx needed at this time Reviewed and discussed with attending, Dr. Aquino <Mario Aquino - Last Filed: 10/12/18 19:37> Results - Vital Signs Recent Vital Signs: Last Vital Signs Temp 98 F 10/12/18 18:00 Pulse 67 10/12/18 18:00 Resp 16 10/12/18 18:00 BP 122/71 10/12/18 18:00 Pulse Ox 95 10/12/18 18:00 - Labs Result Diagrams: 10/12/18 07:15 10/12/18 07:15 Labs: Laboratory Results - last 24 hr 10/11/18 10/12/18 10/12/18 15:10 07:15 07:15 WBC 5.8 D RBC 3.35 L Hgb 11.4 L Hct 34.0 L MCV 101.5 MCH 34.0 MCHC 33.5 RDW 13.4 Plt Count 88 L MPV 12.9 H Gran % 53.7 Lymph % (Auto) 35.6 H Tate % (Auto) 9.6 H Eos % (Auto) 0.9 L Baso % (Auto) 0.2 Gran # 3.14 Lymph # (Auto) 2.1 Tate # (Auto) 0.6 Eos # (Auto) 0.1 Baso # (Auto) 0.01 Sodium 140 Potassium 3.3 L Chloride 109 H Carbon Dioxide 27 Anion Gap 9 L BUN 24 H Creatinine 0.9 Est GFR ( Amer) > 60 Est GFR (Non-Af Amer) > 60 POC Glucose (mg/dL) 97 Random Glucose 90 Calcium 8.6 Total Bilirubin 0.5 AST 20 ALT 22 Alkaline Phosphatase 70 Total Protein 5.9 Albumin 3.1 Globulin 2.8 Albumin/Globulin Ratio 1.1 Assessment & Plan - Assessment and Plan (Free Text) Plan: Pt seen and examined. I have reviewed the note of the certified medical records coder and agree with it. I have discussed the assessment and plan with the resident. I have reviewed the patient's labs and medications. Pt with gait dysfunction. Pt will be seen by Neurology. The pt will need PT evaluation and possible JORGE. The pt prefers to go home. HTN will be controlled with Tenormin. She has not pain.
--- NOTE | 2018-10-12 19:10 | CON ---
DATE OF CONSULTATION: 10/12/2018 CHIEF COMPLAINT: Difficulty with ambulation. HISTORY OF PRESENT ILLNESS: This is a 78-year-old woman with past medical history of hypertension, migraine headaches, spinal stenosis, history of syrinx in the upper thoracic and mid thoracic spine, which is chronic in nature, but the CAT scan of the head showed no acute intracranial abnormalities, came in because she noticed that she had difficulty ambulating from her baseline. She uses a walker and a cane at home without any difficulty. She noted that in her feet. She is definitely deconditioned, but there is no evidence of Parkinson disease at this time. She has also a thoracic syrinx, which is chronic in nature, which could effect her gait and balance as well, for which we will recommend neurosurgical followup with Dr. Cole as her neurologist. She is moving all extremities. She is hard of hearing at baseline, but uses hearing aids. PAST MEDICAL HISTORY: As above. FAMILY HISTORY: Noncontributory. SOCIAL HISTORY: No illicit drug use, smoking, or EtOH abuse. MEDICATIONS: Reviewed by nurse's reconciliation sheet. ALLERGIES: NO KNOWN DRUG ALLERGIES. REVIEW OF SYSTEMS: A 14-point review of systems is negative except as per the HPI. PHYSICAL EXAMINATION: GENERAL: The patient is hard of hearing at baseline, sitting in the bed, in no acute distress. VITAL SIGNS: Temperature 98.3, pulse rate 89, blood pressure 144/87, respiratory rate 20, oxygen saturation 95% on room air. HEENT: Atraumatic and normocephalic. PERRLA. Extraocular muscles intact. NECK: Supple. No JVD. No adenopathy noted. LUNGS: Clear to auscultation. No adventitious sounds. HEART: S1 and S2. Normal rate and rhythm. No murmurs, rubs or gallops. ABDOMEN: Soft, nontender, and nondistended. Bowel sounds are present. EXTREMITIES: No clubbing. No cyanosis. Peripheral pulses 2+ felt bilaterally. NEUROLOGIC: The patient is alert and oriented to person, place, and year. Recall after 5 minutes is 1/2. Poor attention span and slow thought process. Hard of hearing. Speech is fluent without any errors. Cranial nerves II through XII intact. Motor Exam: Moves all extremities equally. Slightly increased tone throughout. No pronator drift is seen. No cognitive rigidity is seen. Sensory Exam: Light touch, pinprick, proprioception and vibration are intact. DTRs are 2+ throughout, 1 at both knees and ankles. Coordination: [id number] intact. No dysmetria noted. Gait is deferred for now. She is deconditioned. LABORATORY DATA: Sodium is 140, potassium 3.3, chloride 109, carbon dioxide 27, BUN 24, creatinine 0.9, random glucose of 90. IMPRESSION AND PLAN: Difficulty ambulation, is likely secondary to deconditioned state superimposed on underlying arthritis. It is unlikely Parkinson's and she does have a chronic syrinx in her upper and mid thoracic spine. We will recommend neurosurgical followup in regard to that. Recommend PT/OT and likely subacute rehab. Thank you for this consult. Follow up with Dr. Cole as her neurologist. Zana Cheung MD
[2018-10-13 06:48] LABS: HEMOGLOBIN 12.7 g/dL (12.0-16.0); MEAN CELL VOLUME 102.1 fl (80.0-105.0); MEAN CORPUSCULAR HEMOGLOBIN 33.6 pg (25.0-35.0); MEAN CORPUSCULAR HGB CONC 32.9 g/dl (31.0-37.0); MEAN PLATELET VOLUME 13.4 fl (7.0-11.0); RBC 3.78 10^6/uL (3.5-6.1); RED CELL DISTRIBUTION WIDTH 13.4 % (11.5-14.5); WHITE BLOOD COUNT 6.5 10^3/uL (4.5-11.0)
[2018-10-13 07:49] LABS: ALB/GLOB RATIO 1.1 (1.1-1.8); ALBUMIN 3.3 g/dL (3.0-4.8); ALT/SGPT 15 U/L (7-56); AST/SGOT 22 U/L (14-36); BLOOD UREA NITROGEN 20 mg/dL (7-21); CALCIUM 9.1 mg/dL (8.4-10.5); GFR NON-AFRICAN AMERICAN > 60
[2018-10-13] MEDS: Magnesium Oxide 400 mg Tab UD PO SCH ×3 (09:12→17:02)
--- NOTE | 2018-10-13 10:13 | CP.PCM.DIS ---
Provider - Provider Date of Admission: 10/11/18 20:07 Attending physician: Mario Aquino MD [facility] - Lab Results Lab Results: Most Recent Lab Values WBC 6.5 10^3/uL (4.5-11.0) 10/13/18 05:45 RBC 3.78 10^6/uL (3.5-6.1) 10/13/18 05:45 Hgb 12.7 g/dL (12.0-16.0) 10/13/18 05:45 Hct 38.6 % (36.0-48.0) 10/13/18 05:45 MCV 102.1 fl (80.0-105.0) 10/13/18 05:45 MCH 33.6 pg (25.0-35.0) 10/13/18 05:45 MCHC 32.9 g/dl (31.0-37.0) 10/13/18 05:45 RDW 13.4 % (11.5-14.5) 10/13/18 05:45 Plt Count 90 10^3/uL (120.0-450.0) L 10/13/18 05:45 MPV 13.4 fl (7.0-11.0) H 10/13/18 05:45 Gran % 53.7 % (50.0-68.0) 10/12/18 07:15 Lymph % (Auto) 35.6 % (22.0-35.0) H 10/12/18 07:15 [place] % (Auto) 9.6 % (1.0-6.0) H 10/12/18 07:15 Eos % (Auto) 0.9 % (1.5-5.0) L 10/12/18 07:15 Baso % (Auto) 0.2 % (0.0-3.0) 10/12/18 07:15 Gran # 3.14 (1.4-6.5) 10/12/18 07:15 Lymph # (Auto) 2.1 (1.2-3.4) 10/12/18 07:15 [place] # (Auto) 0.6 (0.1-0.6) 10/12/18 07:15 Eos # (Auto) 0.1 (0.0-0.7) 10/12/18 07:15 Baso # (Auto) 0.01 K/mm3 (0.0-2.0) 10/12/18 07:15 PT 11.3 SECONDS (9.4-12.5) 10/11/18 17:00 INR 0.99 10/11/18 17:00 APTT 22.9 Seconds (25.1-36.5) L 10/11/18 17:00 Sodium 137 mmol/L (132-148) 10/13/18 05:45 Potassium 3.9 mmol/L (3.6-5.0) 10/13/18 05:45 Chloride 104 mmol/L (98-107) 10/13/18 05:45 Carbon Dioxide 30 mmol/L (21-33) 10/13/18 05:45 Anion Gap 7 (10-20) L 10/13/18 05:45 BUN 20 mg/dL (7-21) 10/13/18 05:45 Creatinine 0.9 mg/dl (0.7-1.2) 10/13/18 05:45 Est GFR ( Amer) > 60 10/13/18 05:45 Est GFR (Non-Af Amer) > 60 10/13/18 05:45 POC Glucose (mg/dL) 97 mg/dL (65-110) 10/11/18 15:10 Random Glucose 102 mg/dL (70-110) 10/13/18 05:45 Calcium 9.1 mg/dL (8.4-10.5) 10/13/18 05:45 Phosphorus 3.4 mg/dL (2.5-4.5) 10/11/18 17:00 Magnesium 1.6 mg/dL (1.7-2.2) L 10/11/18 17:00 Total Bilirubin 0.4 mg/dL (0.2-1.3) 10/13/18 05:45 AST 22 U/L (14-36) 10/13/18 05:45 ALT 15 U/L (7-56) 10/13/18 05:45 Alkaline Phosphatase 77 U/L (38-126) 10/13/18 05:45 Lactate Dehydrogenase 517 U/L (333-699) 10/11/18 17:00 Total Creatine Kinase 170 U/L (35-230) 10/11/18 17:00 Troponin I 0.01 ng/mL 10/11/18 17:00 Total Protein 6.3 g/dL (5.8-8.3) 10/13/18 05:45 Albumin 3.3 g/dL (3.0-4.8) 10/13/18 05:45 Globulin 3.0 gm/dL 10/13/18 05:45 Albumin/Globulin Ratio 1.1 (1.1-1.8) 10/13/18 05:45 Discharge Exam - Head Exam Head Exam: ATRAUMATIC, NORMAL INSPECTION, NORMOCEPHALIC Discharge Plan - Follow Up Plan Condition: FAIR Disposition: HOME/ ROUTINE
--- NOTE | 2018-10-13 14:08 | CP.PCM.PCO ---
Physician Communication Note - Physician Communication Note Physician Communication Note: patient accepted to TCU rehab for tommorow, medically cleared, notified,
--- NOTE | 2018-10-13 14:17 | CP.PCM.PN ---
<Stanley Messer - Last Filed: 10/13/18 18:55> Subjective - Date & Time of Evaluation Date of Evaluation: 10/13/18 Time of Evaluation: 07:00 - Subjective Subjective: Progress Note for Dr. Aquino service Patient seen and examined at bedside. No acute complaints. Feeling better, now amenable to TCU rather than going home with services. Denies any acute pain, shortness of breath, nausea, fevers, chills. Objective - Vital Signs/Intake and Output Vital Signs (last 24 hours): Temp Pulse Resp BP Pulse Ox 98.0 F 68 20 142/84 97 10/13/18 06:00 10/13/18 09:12 10/13/18 06:00 10/13/18 09:12 10/13/18 06:00 Intake and Output: 10/13/18 10/13/18 06:59 18:59 Intake Total 120 Balance 120 - Medications Medications: Current Medications Atenolol (Tenormin) 25 mg PO DAILY [facility] Last Admin: 10/13/18 09:12 Dose: 25 mg Magnesium Oxide (Mag-Ox) 400 mg PO TID [facility] Last Admin: 10/13/18 13:37 Dose: 400 mg - Labs Labs: 10/13/18 05:45 10/13/18 05:45 PT 11.3 SECONDS (9.4-12.5) 10/11/18 17:00 INR 0.99 10/11/18 17:00 APTT 22.9 Seconds (25.1-36.5) L 10/11/18 17:00 - Additional Findings Additional findings: - Constitutional Appears: Well, Non-toxic, No Acute Distress - Head Exam Head Exam: ATRAUMATIC, NORMAL INSPECTION, NORMOCEPHALIC - Eye Exam Eye Exam: EOMI, Normal appearance. absent: Conjunctival injection, Scleral icterus Pupil Exam: absent: Irregular, Unequal - ENT Exam ENT Exam: Mucous Membranes Moist - Neck Exam Neck exam: Positive for: Full Rom, Normal Inspection. Negative for: Lymphadenopathy, Thyromegaly - Respiratory Exam Respiratory Exam: Clear to Auscultation Bilateral, NORMAL BREATHING PATTERN. absent: Accessory Muscle Use, Chest Wall Tenderness, Decreased Breath Sounds, Rales, Rhonchi, Wheezes - Cardiovascular Exam Cardiovascular Exam: REGULAR RHYTHM, RRR, +S1, +S2. absent: Bradycardia, Tachycardia, Irregular Rhythm, JVD, +S4 - GI/Abdominal Exam GI & Abdominal Exam: Normal Bowel Sounds, Soft. absent: Diminished Bowel Sounds, Distended, Firm, Hyperactive Bowel Sounds, Hypoactive Bowel Sounds, Rigid, Tenderness - Extremities Exam Extremities exam: Positive for: normal inspection. Negative for: pedal edema, tenderness - Neurological Exam awake and alert, follows all commands appropriately, moving all extremities spontaneously 4/5 bilateral UE motor strength, 4+/5 bilateral LE motor strength - Psychiatric Exam Psychiatric exam: Normal Affect, Normal Mood - Skin Skin Exam: Dry, Intact, Normal Color, Warm Assessment and Plan - Assessment and Plan (Free Text) Assessment: This is a 78 yo F with PMH of HTN, migraine, spinal stenosis, and hx of toxic goiter who presented with increasing difficulty ambulating at home, and additional complaint (as per son) of increasing confusion and shuffling gait. She was admitted for inability to ambulate, pending TCU placement for reconditioning. Plan: 1) Decreased ambulation Ddx: vs deconditioning vs 2/2 injury from fall -no acute deformity on exam, no suspicion of fracture -CT head in ED negative for acute intracranial process, negative for hydrocephalus -PT to evalutate, recs TCU, pt accepts now -As per Neuro, more likely deconditioning overlying arthritis, not Parkinson's -High fall risk protocol 2) HTN -continue tenormin Dispo: Med/Surg, pending TCU tomorrow Ppx: SCDs for DVT, no GI ppx needed at this time Reviewed and discussed with attending, Dr. Aquino <Mario Aquino S - Last Filed: 10/13/18 21:08> Objective - Vital Signs/Intake and Output Vital Signs (last 24 hours): Temp Pulse Resp BP Pulse Ox 99.1 F 75 18 133/84 99 10/13/18 17:10 10/13/18 17:10 10/13/18 17:10 10/13/18 17:10 10/13/18 17:10 Intake and Output: 10/13/18 10/14/18 18:59 06:59 Intake Total 1250 Balance 1250 - Medications Medications: Current Medications Atenolol (Tenormin) 25 mg PO DAILY [facility] Last Admin: 10/13/18 09:12 Dose: 25 mg Magnesium Oxide (Mag-Ox) 400 mg PO TID [facility] Last Admin: 10/13/18 17:02 Dose: 400 mg - Labs Labs: 10/13/18 05:45 10/13/18 05:45 PT 11.3 SECONDS (9.4-12.5) 10/11/18 17:00 INR 0.99 10/11/18 17:00 APTT 22.9 Seconds (25.1-36.5) L 10/11/18 17:00 Assessment and Plan - Assessment and Plan (Free Text) Plan: Pt seen and examined. I have reviewed the note of the medical stenographer and agree with it. I have discussed the assessment and plan with the resident. I have reviewed the patient's labs and medications. Pt with gait dysfunction. She will need to go to TCU for rehab. She may have an ETOH abuse and will get psych to see pt. BP is controlled. Fall risk. ETOH levels ordered. She has been falling at home.
[2018-10-14 06:53] LABS: BASO # 0.01 K/mm3 (0.0-2.0); BASO % 0.1 % (0.0-3.0); BLOOD UREA NITROGEN 18 mg/dL (7-21); EOS % 0.6 % (1.5-5.0); GFR NON-AFRICAN AMERICAN > 60; GRAN # 4.47 (1.4-6.5); GRAN % 63.5 % (50.0-68.0); HEMOGLOBIN 12.9 g/dL (12.0-16.0); LYMPH # 1.9 (1.2-3.4); LYMPH % 27.6 % (22.0-35.0); MEAN CELL VOLUME 101.3 fl (80.0-105.0); MEAN CORPUSCULAR HEMOGLOBIN 33.7 pg (25.0-35.0); MEAN CORPUSCULAR HGB CONC 33.2 g/dl (31.0-37.0); MEAN PLATELET VOLUME 13.4 fl (7.0-11.0); MONO # 0.6 (0.1-0.6); MONO % 8.2 % (1.0-6.0); RBC 3.83 10^6/uL (3.5-6.1); RED CELL DISTRIBUTION WIDTH 13.2 % (11.5-14.5)
[2018-10-14 07:56] VITALS: BP 132/66; PULSE 52; RESP 19; TEMP 97.9; O2SAT 96
[2018-10-14] MEDS: Magnesium Oxide 400 mg Tab UD PO SCH (09:41)
--- NOTE | 2018-10-14 13:56 | DS ---
DATE OF EVALUATION: 10/14/2018 DISCHARGE DIAGNOSES: 1. Thrombocytopenia. 2. Spinal stenosis. 3. Hypertension. 4. Gait dysfunction. HOSPITAL COURSE: Patient was admitted with gait dysfunction, brought to the ED by friend. Found to have thrombocytopenia, platelet count 98,000. Antiplatelet antibody will be sent, results pending. She is being transferred to Transitional Care Unit for gait improvement. PHYSICAL EXAMINATION ON DISCHARGE: GENERAL: Comfortable in bed, in no acute distress. VITAL SIGNS: Temperature 98.6, heart rate 80 per minute, blood pressure 120/70, respiratory rate 18 per minute, pulse ox is 98% on room air. HEENT: No pallor. NECK: No lymphadenopathy. CHEST: Air entry present and equal, bilateral. No added sound. CARDIOVASCULAR: S1 and S2 normal. No murmur, no gallop. ABDOMEN: Soft, nontender. No hepatosplenomegaly. EXTREMITIES: No edema. CENTRAL NERVOUS SYSTEM: Alert and oriented x3. No focal sensory motor deficit. CONDITION ON DISCHARGE: Stable. DISPOSITION: Discharged to Transitional Care Unit. MEDICATIONS: Continue all the current medications. Discussed with the staff nurse. Discussed with the patient. Time spent in preparing discharge and coordinating care, 55 minutes. Gabrielle Millan MD
--- NOTE | 2018-10-14 14:28 | CON ---
DATE: 10/13/2018 REQUESTING PHYSICIAN: Dr. Aquino. REASON FOR CONSULTATION: Thrombocytopenia. HISTORY OF PRESENT ILLNESS: Ms. Rausch is a 78-year-old female, admitted to the hospital with gait dysfunction. She has had difficulty ambulating, brought to the hospital by her son. Has a history of spinal stenosis, migraine headaches, hypertension. She was found to have thrombocytopenia. Platelet count initially was 110,000, declined to 90,000. Also, had mild anemia, hemoglobin 11.4. Denies any bleeding from any other site. No petechiae. No rash. PAST MEDICAL HISTORY: Hypertension, migraine headaches, spinal stenosis, toxic goiter, difficulty in ambulating. PAST SURGICAL HISTORY: ORIF of left shoulder, metallic splint in 2014. FAMILY HISTORY: Noncontributory. SOCIAL HISTORY: Active smoker. No history of alcohol abuse. REVIEW OF SYSTEMS: As per HPI. Rest of 12-point review of systems reviewed, negative. MEDICATIONS: Reviewed. PHYSICAL EXAMINATION: GENERAL: Comfortable in bed, in no acute distress. VITAL SIGNS: Temperature 98.7, heart rate 89 per minute, respiratory rate 18 per minute, blood pressure 140/70. HEENT: No pallor. NECK: No lymphadenopathy. CHEST: Air entry present and equal, bilateral. No added sound. CARDIOVASCULAR: S1, S2 normal. No murmur. No gallop. ABDOMEN: Soft, nontender. No hepatosplenomegaly. EXTREMITIES: No edema. DIRECTOR CLOUD TRANSFORMATION: Alert, oriented x3. No focal sensorimotor deficit. No cranial nerve palsy. LABORATORY DATA: White count 5.8, hemoglobin 11.4, hematocrit 34, platelet 88,000. Sodium 140, potassium 3.3, BUN 24, creatinine 0.9. ASSESSMENT: 1. Thrombocytopenia. 2. Gait dysfunction. 3. History of spinal stenosis. 4. Hypertension. PLAN: Thrombocytopenia is mild. Might have chronic ITP. We will do the antiplatelet antibody. She needs monitoring of the platelet count. If it declines below 30,000, she needs the treatment for that. I will discuss with the patient at length, thrombocytopenia. She was advised to watch for signs of bleeding or any petechiae. Thank you Dr. Aquino for allowing us to participate in Ms. Rausch's care. Gabrielle Millan MD [facility] # [id number] JEREMIAH
--- NOTE | 2018-10-15 02:41 | CON ---
DATE: 10/14/2018 HISTORY OF PRESENT ILLNESS: The patient is a 78-year-old female who does not appear to have formal psychiatric history; however, does appear to have history of current alcohol abuse, who was admitted to medicine after she presented to the ER accompanied by her son complaining of difficulty walking as well as history of falls. Psychiatry was consulted due to the patient's alcohol use disorder. I met with the patient at bedside and she is calm and cooperative, though hard of hearing. She is able to respond relevantly and consistently to questioning. The patient is aware that September and she is aware of circumstances of admission indicating that she has history of falling prior to coming in. The patient denies any psychiatric issues including depression, suicidal thoughts, or hallucinations and she does not appear to be paranoid and delusions were not elicited. Regarding her alcohol use, the patient does admit to having 1 to 2 small bottles of Malcom Angel's nightly. She reports that she has been drinking this quantity for about a year and she does not really know why she drinks. She indicates that this actually very specifically she cannot taste or smell anymore, and she basically does it out of habit. I reviewed the dangers of continued alcohol use including withdrawal that can lead to seizures and and the patient denies any history of substance induced mood disorders or seizures of withdrawal; however, does report interest in alcohol detox and abstaining from alcohol. In general, the patient has been calm and cooperative in the unit. There have been no major behavioral issues and she has been compliant with her medications. Insight and judgment are considered to be fair. Of note, her brother is . Vital signs and labs were reviewed. RELEVANT PSYCHIATRIC MEDICATIONS: The patient is not on any psychiatric medications. PSYCHIATRIC HISTORY: The patient does not have any formal psychiatric history, suicide attempts, outpatient treatment, or medications. She denies any aids to treatment. SOCIAL HISTORY: The patient's brother reports Bethany is her POA and does admit a caregiver. She lives in one family home. Her brothers were concerned that the patient is drinking too much and that has been contributing to her falls. The patient denies having any children and reports that she has been drinking 1 to 2 small bottles of Malcom Angel's nightly for the past year. No drug use. IMPRESSION: Alcohol use disorder, severe. RECOMMENDATIONS: The patient does not meet criteria for psychiatric inpatient stabilization; however, she would benefit from further detox and rehab. If she is not interested in inpatient rehab, she should be recommended to outpatient addiction services as well as AA. Medical team should follow up with the patient and discuss options of naltrexone to aid with alcohol cravings; however, she does not start this medication, also she has been off of alcohol for 3 to 5 days. There is no indication for transfer to a psychiatric unit at this time. Social work should follow up with these recommendations again. The patient should be referred to detox and rehab if she is agreeable. If she is not agreeable, she should be provided with references for outpatient substance abuse treatment and AA. Medical team should also discuss the option of naltrexone to aid with alcohol cravings; however, she has been abstained from alcohol for at least 3 days prior to starting this treatment. Psychiatry will sign off at this time. Please re-consult p.r.n. In addition, medical team should ensure that the patient is detoxed on the medical floor while she is being worked up for her multiple falls and as she has been rehabilitated. This detox should be with benzos and should be tapered as tolerated as well. Suleiman Quezada MD
--- NOTE | 2018-10-17 08:29 | CP.PCM.PCO ---
Physician Communication Note - Physician Communication Note Physician Communication Note: psychiatry sined off
== END 2018-10-14 13:07 | DRG 554 ==
LOC: ED 15:02 → ERH 18:30 → OBSVTOIN 20:07 → 3RSO 20:20
PROVIDERS: ADMIT Internal Medicine Nephrology; ATTEND Internal Medicine Nephrology
DX: M19.90 Unspecified osteoarthritis, unspecified site (principal); G95.0 Syringomyelia and syringobulbia; R26.2 Difficulty in walking, not elsewhere classified; D69.6 Thrombocytopenia, unspecified; I10 Essential (primary) hypertension; R41.0 Disorientation, unspecified; M48.00 Spinal stenosis, site unspecified; E05.00 Thyrotoxicosis with diffuse goiter without thyrotoxic crisis or storm; D64.9 Anemia, unspecified; F17.210 Nicotine dependence, cigarettes, uncomplicated; F10.20 Alcohol dependence, uncomplicated; G43.909 Migraine, unspecified, not intractable, without status migrainosus; R29.6 Repeated falls; H91.90 Unspecified hearing loss, unspecified ear; Z97.4 Presence of external hearing-aid

== ENCOUNTER 2018-10-14 13:00 | Inpatient (IN) | payer OTHER, MEDICARE ==
[2018-10-14 13:39] VITALS: BMI 26.4
[2018-10-14] MEDS: Magnesium Oxide 400 mg Tab UD PO SCH ×2 (14:45→17:47)
[2018-10-15] MEDS: Magnesium Oxide 400 mg Tab UD PO SCH ×3 (10:20→17:52)
[2018-10-15] MEDS: Divalproex 500 mg ER (ONCE DAILY formulation) PO SCH (21:13)
[2018-10-15] MEDS ORDERED: Divalproex 500 mg ER (ONCE DAILY formulation) PO SCH (22:00)
[2018-10-16] MEDS: Magnesium Oxide 400 mg Tab UD PO SCH ×3 (10:19→18:44)
--- NOTE | 2018-10-16 11:15 | CP.PCM.CON ---
<Perez Morillo - Last Filed: 10/16/18 11:08> History of Present Illness - History of Present Illness History of Present Illness: Podiatry consult note for Dr. Gastelum 78 y/o female patient with PMH of HTN, migraine, spinal stenosis, and hx of toxic goiter seen and evaluated at the bedside for elongated, dystrophic toe nails x10. Patient states that Her toe nailsare elongated and she can't reach it because of her general condition. She states that she follows up with a planting machine crewman [employer] but she didn't see him since long time. She states that her toe nails bothers her when she wear her shoes. Patient denies any other pedal complaint at this time. He denies any recent N/V/F/C/SOB/CP. PMHx - HTN, migraine, spinal stenosis, and hx of toxic goiter PSHx - ORIF L shoulder. Allergies - NKDA. Social Hx: smoker 1 ppd since she was 20, EtOH use socially, Denies illicit drug use Review of Systems - Review of Systems Review of Systems: As per HPI - Constitutional Constitutional: As Per HPI Past Patient History - Infectious Disease Hx of Infectious Diseases: None - Past Social History Smoking Status: Never Smoked - CARDIAC Hx Cardiac Disorders: Yes Hx Hypertension: Yes - PULMONARY Hx Respiratory Disorders: No Other/Comment: smoker - NEUROLOGICAL Hx Neurological Disorder: Yes Hx Migraine: Yes - HEENT Hx HEENT Problems: No - RENAL Hx Chronic Kidney Disease: No - ENDOCRINE/METABOLIC Hx Endocrine Disorders: No Other/Comment: VITAMIN D DEFICIENCY,TOXIC GOITER - HEMATOLOGICAL/ONCOLOGICAL Other/Comment: thrombocytopenia - INTEGUMENTARY Hx Dermatological Problems: Yes (SKIN ABRASION TO FACE FROM FALL) - MUSCULOSKELETAL/RHEUMATOLOGICAL Hx Falls: Yes (twice in the past year) - GASTROINTESTINAL Hx Gastrointestinal Disorders: No - GENITOURINARY/GYNECOLOGICAL Hx Genitourinary Disorders: No - PSYCHIATRIC Hx Psychophysiologic Disorder: Yes Hx Depression: Yes Hx Emotional Abuse: No Hx Physical Abuse: No - SURGICAL HISTORY Hx Orthopedic Surgery: Yes (orif left shoulder 12/13/2014) - ANESTHESIA Hx Anesthesia: Yes Hx Anesthesia Reactions: No Hx Malignant Hyperthermia: No Meds Allergies/Adverse Reactions: Allergies Allergy/AdvReac Type Severity Reaction Status Date / Time No Known Allergies Allergy Verified 10/14/18 19:47 - Medications Medications: Current Medications Atenolol (Tenormin) 25 mg PO DAILY [facility] Last Admin: 10/16/18 10:19 Dose: 25 mg Clonazepam (Klonopin) 1 mg PO TID [facility]; Protocol Last Admin: 10/16/18 10:18 Dose: 1 mg Divalproex Sodium (Depakote Er(Once Daily)) 1,500 mg PO 2200 [facility]; Protocol Last Admin: 10/15/18 21:13 Dose: 1,500 mg Lorazepam (Ativan) 0.25 mg PO Q6 PRN; Protocol PRN Reason: Symptoms of alcohol withdrawl Magnesium Oxide (Mag-Ox) 400 mg PO TID [facility] Last Admin: 10/16/18 10:19 Dose: 400 mg Physical Exam - Constitutional Appears: Well, Non-toxic, No Acute Distress - Head Exam Head Exam: ATRAUMATIC, NORMOCEPHALIC - Extremities Exam Additional comments: B/L LE focused exam: Vasc: DP/PT pulses palpable 1/4 b/l; cap refill <3 seconds to all digits; temp gradient warm to cool from proximal to distal b/l; no edema noted Neuro: Gross and protective sensations are intact b/l Derm: Toe nails are dystrophic and elongated x10; No open wound or lesions noted b/l; skin temp and turgor are WNL. MSK: Pain on palpation to some of the nails; Muscle power intact 5/5 to all groups. Arthritic changes noted to all major foot and ankle joints. - Neurological Exam Neurological exam: Normal Gait, Oriented x3 - Psychiatric Exam Psychiatric exam: Normal Affect, Normal Mood Results - Vital Signs Recent Vital Signs: Last Vital Signs Temp 98.8 F 10/16/18 10:00 Pulse 83 10/16/18 10:19 Resp 20 10/16/18 10:00 BP 120/77 10/16/18 10:19 Pulse Ox 100 10/16/18 10:00 Assessment & Plan - Assessment and Plan (Free Text) Assessment: 78 y/o female patient seen and evaluated at the bedside for elongated, dystrophic toe nails x10. Plan: [facility] Plan discussed with attending Dr. Sparrow Labs and charts reviewed - afebrile, absent leukocytosis Nails sharply debrided using sterile nail nipper x10 without incident Patient tolerated the nail clipping well. Podiatry to sign off on patient Thank you for the consult, please reconsult if acute pedal complaints present - Date & Time Date: 10/16/18 Time: 11:16 <Kyrie Zarco - Last Filed: 10/16/18 13:05> Meds - Medications Medications: Current Medications Atenolol (Tenormin) 25 mg PO DAILY [facility] Last Admin: 10/16/18 10:19 Dose: 25 mg Clonazepam (Klonopin) 1 mg PO TID [facility]; Protocol Last Admin: 10/16/18 10:18 Dose: 1 mg Divalproex Sodium (Depakote Er(Once Daily)) 1,500 mg PO 2200 [facility]; Protocol Last Admin: 10/15/18 21:13 Dose: 1,500 mg Lorazepam (Ativan) 0.25 mg PO Q6 PRN; Protocol PRN Reason: Symptoms of alcohol withdrawl Magnesium Oxide (Mag-Ox) 400 mg PO TID [facility] Last Admin: 10/16/18 10:19 Dose: 400 mg Results - Vital Signs Recent Vital Signs: Last Vital Signs Temp 98.8 F 10/16/18 10:00 Pulse 83 10/16/18 10:19 Resp 20 10/16/18 10:00 BP 120/77 10/16/18 10:19 Pulse Ox 100 10/16/18 10:00 Attending/Attestation - Attestation I have personally seen and examined this patient.: Yes I have fully participated in the care of the patient.: Yes I have reviewed all pertinent clinical information: Yes
[2018-10-16] MEDS: Divalproex 500 mg ER (ONCE DAILY formulation) PO SCH (21:22)
[2018-10-17] MEDS: Magnesium Oxide 400 mg Tab UD PO SCH ×3 (09:13→17:51)
--- NOTE | 2018-10-17 14:10 | CP.PCM.HP ---
History of Present Illness - History of Present Illness History of Present Illness: HISTORY OF PRESENT ILLNESS: Ms. Rausch is a 78-year-old female, admitted to the hospital with gait dysfunction. She has had difficulty ambulating, brought to the hospital by her son. Has a history of spinal stenosis, migraine headaches, hypertension. She was found to have thrombocytopenia. Platelet count initially was 110,000, declined to 90,000. Also, had mild anemia, hemoglobin 11.4. Denies any bleeding from any other site. No petechiae. No rash. Admitted to TCU for gait improvement. PAST MEDICAL HISTORY: Hypertension, migraine headaches, spinal stenosis, toxic goiter, difficulty in ambulating. PAST SURGICAL HISTORY: ORIF of left shoulder, FAMILY HISTORY: Noncontributory. SOCIAL HISTORY: Active smoker. No history of alcohol abuse. REVIEW OF SYSTEMS: As per HPI. Rest of 12-point review of systems reviewed, negative. MEDICATIONS: Reviewed. PHYSICAL EXAMINATION: GENERAL: Comfortable in bed, in no acute distress. VITAL SIGNS: Temperature 98, heart rate 80 per minute, respiratory rate 18 per minute, blood pressure 130/70. HEENT: No pallor. NECK: No lymphadenopathy. CHEST: Air entry present and equal, bilateral. No added sound. CARDIOVASCULAR: S1, S2 normal. No murmur. No gallop. ABDOMEN: Soft, nontender. No hepatosplenomegaly. EXTREMITIES: No edema. CALCULATING MACHINE OPERATOR: Alert, oriented x3. No focal sensorimotor deficit. No cranial nerve palsy. LABORATORY DATA: White count 5.8, hemoglobin 11.4, hematocrit 34, platelet 88,000. Sodium 140, potassium 3.3, BUN 24, creatinine 0.9. ASSESSMENT: 1. Thrombocytopenia. 2. Gait dysfunction. 3. History of spinal stenosis. 4. Hypertension. PLAN: Gait dysfunction. Falls at home. PT to continue. Thrombocytopenia is mild. Might have chronic ITP. We will do the antiplatelet antibody. Continue norvasc. BP controlled on current meds. regular diet. Gabrielle Millan MD Present on Admission - Present on Admission Any Indicators Present on Admission: No Past Patient History - Infectious Disease Hx of Infectious Diseases: None - Past Social History Smoking Status: Never Smoked - CARDIAC Hx Cardiac Disorders: Yes Hx Hypertension: Yes - PULMONARY Hx Respiratory Disorders: No Other/Comment: smoker - NEUROLOGICAL Hx Neurological Disorder: Yes Hx Migraine: Yes - HEENT Hx HEENT Problems: No - RENAL Hx Chronic Kidney Disease: No - ENDOCRINE/METABOLIC Hx Endocrine Disorders: No Other/Comment: VITAMIN D DEFICIENCY,TOXIC GOITER - HEMATOLOGICAL/ONCOLOGICAL Other/Comment: thrombocytopenia - INTEGUMENTARY Hx Dermatological Problems: Yes (SKIN ABRASION TO FACE FROM FALL) - MUSCULOSKELETAL/RHEUMATOLOGICAL Hx Falls: Yes (twice in the past year) - GASTROINTESTINAL Hx Gastrointestinal Disorders: No - GENITOURINARY/GYNECOLOGICAL Hx Genitourinary Disorders: No - PSYCHIATRIC Hx Psychophysiologic Disorder: Yes Hx Depression: Yes Hx Emotional Abuse: No Hx Physical Abuse: No - SURGICAL HISTORY Hx Orthopedic Surgery: Yes (orif left shoulder 12/13/2014) - ANESTHESIA Hx Anesthesia: Yes Hx Anesthesia Reactions: No Hx Malignant Hyperthermia: No Meds Allergies/Adverse Reactions: Allergies Allergy/AdvReac Type Severity Reaction Status Date / Time No Known Allergies Allergy Verified 10/14/18 19:47 Results - Vital Signs Recent Vital Signs: Last Vital Signs Temp 97.8 F 10/17/18 06:00 Pulse 67 10/17/18 09:32 Resp 20 10/17/18 06:00 BP 100/60 10/17/18 09:32 Pulse Ox 95 10/17/18 06:00
--- NOTE | 2018-10-17 14:13 | CP.PCM.PN ---
Subjective - Date & Time of Evaluation Date of Evaluation: 10/16/18 Time of Evaluation: 11:00 - Subjective Subjective: Participating in PT. No complaints. Objective - Vital Signs/Intake and Output Vital Signs (last 24 hours): Temp Pulse Resp BP Pulse Ox 97.8 F 67 20 100/60 95 10/17/18 06:00 10/17/18 09:32 10/17/18 06:00 10/17/18 09:32 10/17/18 06:00 Intake and Output: 10/17/18 10/17/18 06:59 18:59 Intake Total 240 Balance 240 - Medications Medications: Current Medications Atenolol (Tenormin) 25 mg PO DAILY [facility] Last Admin: 10/17/18 09:32 Dose: 25 mg Clonazepam (Klonopin) 1 mg PO TID [facility]; Protocol Last Admin: 10/17/18 09:15 Dose: 1 mg Divalproex Sodium (Depakote Er(Once Daily)) 1,500 mg PO 2200 [facility]; Protocol Last Admin: 10/16/18 21:22 Dose: 1,500 mg Lorazepam (Ativan) 0.25 mg PO Q6 PRN; Protocol PRN Reason: Symptoms of alcohol withdrawl Magnesium Oxide (Mag-Ox) 400 mg PO TID [facility] Last Admin: 10/17/18 09:13 Dose: 400 mg - Constitutional Appears: Non-toxic - Head Exam Head Exam: ATRAUMATIC, NORMAL INSPECTION, NORMOCEPHALIC - Eye Exam Eye Exam: Normal appearance Pupil Exam: NORMAL ACCOMODATION - ENT Exam ENT Exam: Mucous Membranes Moist - Neck Exam Neck Exam: Normal Inspection - Respiratory Exam Respiratory Exam: Clear to Ausculation Bilateral, NORMAL BREATHING PATTERN - Cardiovascular Exam Cardiovascular Exam: REGULAR RHYTHM, +S1, +S2 - GI/Abdominal Exam GI & Abdominal Exam: Soft, Normal Bowel Sounds - Neurological Exam Neurological Exam: Alert, Awake, CN II-XII Intact - Psychiatric Exam Psychiatric exam: Normal Affect, Normal Mood - Skin Skin Exam: Normal Color, Warm Assessment and Plan - Assessment and Plan (Free Text) Assessment: HISTORY OF PRESENT ILLNESS: Ms. Rausch is a 78-year-old female, admitted to the hospital with gait dysfunction. She has had difficulty ambulating, brought to the hospital by her son. Has a history of spinal stenosis, migraine headaches, hypertension. She was found to have thrombocytopenia. Platelet count initially was 110,000, declined to 90,000. Also, had mild anemia, hemoglobin 11.4. Denies any bleeding from any other site. No petechiae. No rash. Admitted to TCU for gait improvement. PAST MEDICAL HISTORY: Hypertension, migraine headaches, spinal stenosis, toxic goiter, difficulty in ambulating. PAST SURGICAL HISTORY: ORIF of left shoulder, FAMILY HISTORY: Noncontributory. Gait dysfunction. History of spinal stenosis. Hypertension. Thrombocytopenia. PLAN: Gait dysfunction. Falls at home. PT to continue. Thrombocytopenia is mild. Might have chronic ITP. We will do the antiplatelet antibody. Continue atenolol. BP controlled on current meds. On depakote at home, continue same. regular diet. Gabrielle Millan MD
--- NOTE | 2018-10-17 14:50 | PN ---
DATE: 10/17/2018 SUBJECTIVE: She is comfortable in bed, in no acute distress, participating in physical therapy. She is currently on Klonopin for anxiety, 1 mg by mouth three times a day. Also, on Ativan as needed. Blood pressure controlled with current medications, atenolol 25 mg daily. REVIEW OF SYSTEMS: As per HPI. Rest of 12-point review of systems reviewed negative. PHYSICAL EXAMINATION GENERAL: Comfortable in bed, in no acute distress. VITAL SIGNS: Temperature is 98.7, heart rate 80 per minute, blood pressure /70, respiratory rate 18 per minute. HEENT: Pallor positive. NECK: No lymphadenopathy. CHEST: Air entry present and equal bilaterally. No added sound. CARDIOVASCULAR: S1, S2 normal. No murmur, no gallop. ABDOMEN: Soft, nontender. No hepatosplenomegaly. EXTREMITIES: No edema. SKIN: No petechiae, no rash. CURRENT MEDICATIONS: Atenolol 25 mg by mouth daily, Klonopin 1 mg by mouth three times a day, Depakote 1500 mg by mouth daily, lorazepam 0.25 mg every six hours as needed, magnesium oxide 400 mg by mouth three times a day. ASSESSMENT: 1. Gait dysfunction. 2. Thrombocytopenia. 3. Hypertension. PLAN: We will continue current medications. Physical therapy to continue. She is making progress. Gait has improved markedly. Appetite is good. Blood pressure controlled on current medications. Gabrielle Millan MD
[2018-10-17] MEDS: Divalproex 500 mg ER (ONCE DAILY formulation) PO SCH (21:19)
--- NOTE | 2018-10-18 07:53 | CON ---
DATE: 10/15/2018 HISTORY OF PRESENT ILLNESS: This is a 78-year-old patient who was admitted to the hospital with gait dysfunction, had a difficulty in ambulating, and brought to the hospital by his son. The patient now transferred to [facility], and her gait is better. The patient is ambulating with a walker. PAST MEDICAL HISTORY: Hypertension, migraine, spinal stenosis, goiter. REVIEW OF SYSTEMS: A 10-point review of system negative. PHYSICAL EXAMINATION HEENT: Normocephalic, atraumatic. NECK: Supple. NEUROLOGIC: Awake, orientated to self. Cranial nerves II through XII were tested. Pupils reactive. EOM intact. Visual adams full. No facial asymmetry. Tongue midline. Motor examination: Spontaneous movement of the extremities noted. The patient is ambulating with walker in the hallway. Deep tendon reflexes 1+. Plantars are downgoing. Sensory appears intact. Cerebellar gait improving. IMPRESSION: The patient had gait difficulty, gait dysfunction, history of spinal stenosis, ambulating in the hallway. Continue present management. We will follow up. Ochoa Cheung MD
[2018-10-18] MEDS: Magnesium Oxide 400 mg Tab UD PO SCH ×3 (10:53→18:02)
--- NOTE | 2018-10-18 14:39 | PN ---
DATE: 10/18/2018 SUBJECTIVE: The patient has no complaints of any chest pain, shortness of breath, or headaches. PHYSICAL EXAMINATION VITAL SIGNS: Temperature is 97.8, pulse 56, blood pressure 100/60, respirations 20. GENERAL: The patient is lying in bed, flat, comfortable. HEENT: No oral lesion. Anicteric sclerae. Moist mucosa. NECK: No JVD, adenopathy, or thyromegaly. CARDIOVASCULAR: S1 and S2 regular. No murmurs, rubs, or gallops. LUNGS: Clear to auscultation bilaterally. No wheeze, rales, or rhonchi. ABDOMEN: Bowel sounds are positive, soft, nontender and nondistended. EXTREMITIES: No cyanosis, clubbing or edema. ASSESSMENT: 1. Gait dysfunction. 2. History of alcoholism. 3. Spinal stenosis. 4. Hypertension. 5. 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 PLAN: The patient is currently on Depakote. She will continue. She is on clonazepam 3 times a day. She is seeing Psych. She was on magnesium replacement because of hypomagnesemia. The patient is going to have repeat blood count done tomorrow. She is on atenolol daily. She is on heart healthy diet. She is getting physical therapy. Mario Aquino MD
[2018-10-18] MEDS: Divalproex 500 mg ER (ONCE DAILY formulation) PO SCH (21:06)
[2018-10-19 06:50] LABS: ALB/GLOB RATIO 1.1 (1.1-1.8); ALBUMIN 3.4 g/dL (3.0-4.8); ALT/SGPT 20 U/L (7-56); AST/SGOT 18 U/L (14-36); BLOOD UREA NITROGEN 35 mg/dL (7-21); CALCIUM 9.4 mg/dL (8.4-10.5); GFR NON-AFRICAN AMERICAN 54
[2018-10-19 07:05] LABS: HEMOGLOBIN 12.3 g/dL (12.0-16.0); MEAN CELL VOLUME 101.9 fl (80.0-105.0); MEAN CORPUSCULAR HEMOGLOBIN 33.5 pg (25.0-35.0); MEAN CORPUSCULAR HGB CONC 32.9 g/dl (31.0-37.0); MEAN PLATELET VOLUME 13.3 fl (7.0-11.0); RBC 3.67 10^6/uL (3.5-6.1); RED CELL DISTRIBUTION WIDTH 13.8 % (11.5-14.5); WHITE BLOOD COUNT 6.2 10^3/uL (4.5-11.0)
[2018-10-19] MEDS: Divalproex 500 mg ER (ONCE DAILY formulation) PO SCH (21:32)
[2018-10-20] MEDS: Divalproex 500 mg ER (ONCE DAILY formulation) PO SCH (21:16)
[2018-10-21 09:58] VITALS: O2SAT 95
[2018-10-21 16:20] VITALS: PULSE 66; RESP 16; TEMP 98.3
--- NOTE | 2018-10-22 05:02 | DS ---
HISTORY OF PRESENT ILLNESS: This is a 78-year-old female who came into the Transitional Care Unit for rehab. She does have a history of alcoholism. She was advised to quit drinking. I did speak to the patient's brother to update him the patient's going to be discharge home. She was seen by Psychiatry during the hospital stay. She has not headaches or dizziness. She has no nausea or vomiting. PHYSICAL EXAMINATION: VITAL SIGNS: Temperature is 98.3, pulse is 56, blood pressure is 121/65 and respirations 20. GENERAL: The patient is lying in bed, flat, comfortable. HEENT: No oral lesion. Anicteric sclerae. Moist mucosa. NECK: No JVD, adenopathy, or thyromegaly. CARDIOVASCULAR: S1 and S2, regular. No murmurs, rubs, or gallops. LUNGS: Clear to auscultation bilaterally. No wheeze, rales, or rhonchi. ABDOMEN: Bowel sounds are positive, soft, nontender and nondistended. EXTREMITIES: No cyanosis, clubbing or edema. ASSESSMENT: 1. Gait dysfunction. 2. History of alcoholism. 3. Spinal stenosis. 4. Hypertension. 5. Thrombocytopenia, secondary to probable cirrhosis. PLAN: The patient is currently on Klonopin. I have decreased the patient's Klonopin. She is going to continue with atenolol. She is on heart healthy diet. She is going to be discharged home tomorrow. CONDITION: Stable. ACTIVITY: Increase as tolerated. FOLLOWUP: Follow up with primary care doctor in one to two weeks. Mario Aquino MD
[2018-10-22 09:39] VITALS: BP 118/75
== END 2018-10-22 12:03 | disposition home or self-care (01) | DRG 556 ==
LOC: TRCU 13:00
PROVIDERS: ADMIT Internal Medicine Nephrology; ATTEND Internal Medicine Nephrology
PROC: F07Z9FZ Gait Training/Functional Ambulation Treatment using Assistive, Adaptive, Supportive or Protective Equipment (ICD-10-PCS; principal; 2018-10-15)
PROC: F08Z4FZ Home Management Treatment using Assistive, Adaptive, Supportive or Protective Equipment (ICD-10-PCS; 2018-10-15)
DX: R26.2 Difficulty in walking, not elsewhere classified (principal); I10 Essential (primary) hypertension; K74.60 Unspecified cirrhosis of liver; D69.59 Other secondary thrombocytopenia; D64.9 Anemia, unspecified; M48.00 Spinal stenosis, site unspecified; E83.42 Hypomagnesemia; F41.9 Anxiety disorder, unspecified; F17.210 Nicotine dependence, cigarettes, uncomplicated